=== PATIENT | male | born 1950 | race Caucasian/White ===

== ENCOUNTER 2021-08-12 05:52 | Emergency (ER) | payer MEDICARE ==
[~2021-08-12] VITALS: Ht 188 cm; Wt 93.4 kg
[2021-08-12] MEDS ORDERED: ONDANSETRON ODT 4MG TAB ONE (06:04)
[2021-08-12] MEDS ORDERED: MORPHINE 4 MG SYG ONE (06:05)
[2021-08-12 06:22] VITALS: BP 172/89
[2021-08-12] MEDS ORDERED: MORPHINE 4 MG SYG IM SCH (06:30)
[2021-08-12] MEDS ORDERED: ONDANSETRON ODT 4MG TAB SL SCH (06:30)
[2021-08-12] MEDS ORDERED: ACET1TAB25 PO (07:26)
== END 2021-08-12 07:45 | disposition home or self-care (01) ==
LOC: EDH 05:52
DX: S43.102A Unspecified dislocation of left acromioclavicular joint, initial encounter (principal); W06.XXXA Fall from bed, initial encounter; Y93.89 Activity, other specified; Y92.89 Other specified places as the place of occurrence of the external cause; Y99.8 Other external cause status
CPT/HCPCS: 73030; 73200; 96372; 99284; J2270